=== PATIENT | female | born 1975 | race American Indian/Alaskan Native ===

== ENCOUNTER 2018-10-29 08:01 | Emergency (ER) | payer MEDICARE ==
[2018-10-29] MEDS ORDERED: DELTASONE PO ONE (10:10)
[2018-10-29] MEDS ORDERED: DUONEB *Not for PRN Use IH ONE (10:10)
--- NOTE | 2018-10-29 11:18 | Emergency Department Report ---
Minor Respiratory - HPI Chief Complaint: Upper Respiratory Infection Stated Complaint: FLU SX Time Seen by Provider: 10/29/18 09:55 Duration: 3 Days Pain Location: Nose Severity: moderate Minor Respiratory: Yes Rhinorrhea, Yes Able to Tolerate Fluids, Yes Cough, No Sore Throat, No Ear Pain, No Sick Contacts, No Hemoptysis, No Chest Pain, No Shortness of Breath, No Fever Other History: Is a 43-year-old male who presents to ED complaining of chest congestion, cough for the past 3 days. Patient states that last night symptoms got worse. Patient states that she is coughing up greenish mucous. She states that she is coughing so intermittently that is causing her to have a headache. Patient denies any medical conditions such as hypertension, diabetes, asthma. ED Review of Systems ROS: Stated complaint: FLU SX Other details as noted in HPI Comment: All other systems reviewed and negative ED Past Medical Hx - Past Medical History Previous Medical History?: Yes Additional medical history: Glaucoma - Surgical History Past Surgical History?: No - Social History Smoking Status: Never Smoker Substance Use Type: None - Medications Home Medications: Home Medications Medication Instructions Recorded Confirmed Last Taken Type ALBUTEROL Inhaler(NF) [VENTOLIN 2 puff IH PRN #1 inha 10/29/18 Unknown Rx Inhaler(NF)] Benzonatate [Tessalon Perles] 100 mg PO Q8HR #20 capsule 10/29/18 Unknown Rx Ibuprofen [Motrin] 600 mg PO Q8H #20 tablet 10/29/18 Unknown Rx Minor Respiratory Exam - Exam General: Vital signs noted. No distress. Alert and acting appropriately. HEENT: Yes Moist Mucous Membranes, No Pharyngeal Erythema, No Pharyngeal Exudates, No Rhinorrhea, No Conjuctival Injection, No Frontal Tenderness, No Maxillary Tenderness Ear: Neither TM Bulge, Neither TM Erythema, Neither EAC Pain, Neither EAC Discharge Neck: Yes Supple, No Adenopathy Lungs: Yes Good Air Exchange, No Wheezes, No Ronchi, No Stridor, No Cough, No Labored Respirations, No Retractions, No Use of Accessory Muscles, No Other Abnormal Lung Sounds Heart: Yes Regular, No Murmur Abdomen: Yes Normal Bowel Sounds, No Tenderness, No Peritoneal Signs Skin: No Rash, No Edema Neurologic: Alert and oriented, no deficits. Musculoskeletal: Unremarkable. ED Course Vital Signs 10/29/18 08:10 Temperature 98.0 F Pulse Rate 80 Respiratory 16 Rate Blood Pressure 173/130 O2 Sat by Pulse 97 Oximetry ED Medical Decision Making - Radiology Data Radiology results: report reviewed, image reviewed - Medical Decision Making 43-year-old female presents with bronchitis ED course: Patient received a breathing treatment, prednisone, in the ED. Chest x-ray ordered, chest x-ray shows no acute findings. Patient had no respiratory distress in the ED. Post treatment evaluation: No wheezing heard, no use of accessory muscles, I discussed with the patient to follow up with her primary care physician. I discussed with the patient will be going home on with albuterol inhaler as well as nebulizer Vital signs are normalized, patient is saturation at 99% on room air. I discussed with the patient is symptoms worsen to return to ED immediately. Critical care attestation.: If time is entered above; I have spent that time in minutes in the direct care of this critically ill patient, excluding procedure time. ED Disposition Clinical Impression: Bronchitis Disposition: [id number] TO HOME OR SELFCARE Is pt being admited?: No Does the pt Need Aspirin: No Condition: Stable Instructions: Acute Bronchitis (ED) Additional Instructions: Make sure to follow up with the primary care physician as discussed. Take all your medications as you've been prescribed. If you have any worsening symptoms or develop new symptoms please return to ED immediately. Prescriptions: Ibuprofen [Motrin] 600 mg PO Q8H #20 tablet Benzonatate [Tessalon Perles] 100 mg PO Q8HR #20 capsule ALBUTEROL Inhaler(NF) [VENTOLIN Inhaler(NF)] 2 puff IH PRN #1 inha Referrals: JADE ARRIAZA MD [Primary Care Provider] - 3-5 Days Forms: Accompanied Note, Work/School Release Form(ED) Time of Disposition: 11:59
[2018-10-29 12:11] VITALS: BP 148/91
--- NOTE | 2018-10-29 12:11 | XRay Report ---
CHEST 2 VIEWS INDICATION: Cough. COMPARISON: None similar at this institution. FINDINGS: PA and lateral chest radiographs demonstrate normal cardiomediastinal silhouette. Clear lungs. Intact bones. Possible cholecystectomy clips. CONCLUSION: No acute disease in the chest. Thank you for the opportunity to participate in this patient's care.
== END 2018-10-29 12:14 | disposition home or self-care (01) ==
LOC: ED 08:01
DX: J40 Bronchitis, not specified as acute or chronic (principal)
CPT/HCPCS: 71046; 94640; 99283; J7512